=== PATIENT | male | born 1965 | race African-American/Black ===

== ENCOUNTER 2016-04-29 11:27 | Day surgery (SDC) | payer OTHER ==
[2016-04-28 13:52] VITALS: BMI 37.4
[~2016-04-29] VITALS: Ht 172.7 cm; Wt 118.0 kg
[2016-04-29] VITALS (12 sets, daily range): BP systolic 119–147; BP diastolic 61–101; PULSE 50–62; RESP 13–26; Ht 172.7 cm; Wt 118.0 kg
[~2016-04-29 11:27] MED LIST: CEFAZOLIN 1 GM INJ ONE; CEFAZOLIN 1 GM/50 ML (PMX) 50 ML IVPB ONE; FINA5TAB4 PO; GLYCOPYRROLATE 0.4 MG INJ ONE; LIDOCAINE 2% (SDV) 5 ML INJ ONE; NEOSTIGMINE 3 MG/3 ML SYRINGE ONE; PROPOFOL 200 MG INJ ONE; ROCURONIUM 50 MG INJ ONE; SUCCINYLCHOLINE CHLORIDE 100 MG/5 ML SYG IV ONE; TADA5TAB5 PO; TAMS0.4C2 PO; TRIAMCINOLONE ACET SUSP 200 MG INJ INJ SCH; [UNRECOGNIZED DRUG - OTHER]
[2016-04-29] MEDS ORDERED: TRIAMCINOLONE ACET 40 MG/ML INJ ONE ×2 (14:56→15:34)
[2016-04-29] MEDS ORDERED: FENTAnyl 50 MCG/ML VIAL ONE (15:04)
--- NOTE | 2016-04-29 15:28 | HP ---
DATE OF ADMISSION: 04/29/2016 CHIEF COMPLAINT: Slow urinary stream. HISTORY OF PRESENT ILLNESS: This patient has a history of slow urinary stream, frequency and urgenc y. He had undergone a transurethral laser ablation of the prostate on 07/31/2015. He initially had excellent urinary stream, but over time, patient developed a very slow trickling urinary stream wit h sensation of incomplete bladder emptying. Patient underwent a cystoscopy in my office which revea led bladder neck contracture. PAST MEDICAL HISTORY: None. PAST SURGICAL HISTORY: Back lumbar surgery as well as a laser TUR. ALLERGIES: IBUPROFEN. MEDICATIONS: None. SOCIAL HISTORY: No smoke, no alcohol. FAMILY HISTORY: No cancer. PHYSICAL EXAMINATION: CONSTITUTIONAL: The patient appears to be in no acute distress. GASTROINTESTINAL: Abdomen is soft, normal bowel sounds, nondistended, nontender. Hernia exam none noted. Liver and spleen normal. GENITOURINARY: Scrotum no lesions, no edema, no erythema, mass, rash, or cysts. Epididymis symmetr ic, normal size, normal texture, nontender. Urethral meatus normal in size and location. Testes de scended bilaterally. NECK: Normal appearing, symmetric. Normal tracheal position. Thyroid no enlargement. EXTREMITIES: No edema. ASSESSMENT: 1. 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 2. Slow urinary stream. 3. Incomplete bladder emptying. RECOMMENDATIONS: I have spoken with the patient in detail about the natural history and biology of bladder neck contracture formation. We discussed various treatment options. Among these options, I have recommended and patient has elected to undergo transurethral resection of the bladder neck wit h transurethral injection of Kenalog. This procedure has been explained to the patient in detail. Risks and benefits have been discussed. He understands that risks include, but are not limited to i nfection, bleeding, damage to adjacent structures, heart problems, lung problems, possibility of nee d for further surgery, DVT, PE, SC, CVA, nonresolution of symptoms, recurrence of symptoms, need for other treatments, need for other surgeries, recurrence of contracture, recurrence of stricture form ation in other areas of the urethra, nonresolution of symptoms, retrograde ejaculation and erectile dysfunction. All of his questions have been answered, no guarantees given. He would like to procee d. Dictated By: KEO MONTES DE OCA MD SR/NTS Conf#: [id number] DID#: [id number]
[2016-04-29] MEDS ORDERED: MEPERIDINE 25 MG INJ IV PRN (16:00)
[2016-04-29] MEDS ORDERED: DIPHENHYDRAMINE 50 MG INJ IV PRN (16:00)
[2016-04-29] MEDS ORDERED: ONDANSETRON 4 MG INJ IV PRN (16:00)
[2016-04-29] MEDS ORDERED: METOCLOPRAMIDE 10 MG INJ IV PRN (16:00)
[2016-04-29] MEDS ORDERED: OXYCODONE/ACETAMINOPHEN (5/325) TAB PO PRN (16:00)
[2016-04-29] MEDS ORDERED: HYDROmorphONE (0.2 MG/ML) 10ML SYG IV PRN ×3 (16:00)
[2016-04-29] MEDS ORDERED: FENTAnyl 50 MCG/ML VIAL IV PRN ×2 (16:00)
[2016-04-29] MEDS ORDERED: HYDROCODONE/APAP (5/325) TAB PO PRN (16:30)
--- NOTE | 2016-04-29 16:38 | OPPN ---
Date/Time of Note Date/Time of Note DATE: 04/29/16 TIME: 16:36 Operative/Procedure Note Pre-Operative Diagnosis Bladder neck contracture Post-Operative Diagnosis bladder neck contracture Procedure TRUBNC and injection of kenelog transurethral Surgeon: KEO MONTES DE OCA Findings tight BNC: pinpoint opening to bladder: resected to wide open fossa and injected 80 mg kenelog Implants/Grafts: Not applicable Estimated blood loss: 0 - 10 ml's Drains 18 fr catheter Specimens prostate tissue Complications: None Anesthesia type: general KEO MONTES DE OCA Apr 29, 2016 16:38
--- NOTE | 2016-04-29 17:31 | OPR ---
DATE OF OPERATION: 04/29/2016 PREOPERATIVE DIAGNOSIS: Bladder neck contracture. POSTOPERATIVE DIAGNOSIS: Bladder neck contracture. OPERATION PERFORMED: 1. Transurethral resection of bladder neck contracture. 2. Transurethral injection of Kenalog at the bladder neck. INDICATIONS FOR PROCEDURE: This patient has undergone a transurethral laser ablation of his prostat e. He initially had done well; however, over time, his urine stream became extremely slow down to a trickle when he developed incomplete bladder emptying. The patient's cystoscopy revealed bladder n patricia contracture. He is now scheduled to undergo treatment for this problem. FINDINGS: There was only a pinpoint opening at the bladder neck. The prostate appeared to be scarr ed from the bladder neck almost to the verumontanum. At the end of procedure, the prostatic fossa w as wide open and ureteral orifices were orthotopic and intact. Kenalog 80 mg was given to hopefully prevent recurrence of the contracture. PROCEDURE IN DETAIL: The patient was brought to the operating room, underwent general anesthesia. He was placed in lithotomy position. Abdomen, perineum and genitalia were prepped and draped in usu al sterile fashion. A 26 Swiss continuous resecting sheath under direct vision with the visualizin g obturator was placed into the urethra. This was advanced into the prostatic fossa. At the level of the bladder neck, the bladder neck appeared to be scarred with only pinpoint opening beyond this location. The resecting loop with its resecting element were attached. The bipolar resection instr ument was used. The bladder neck contracture was then carefully dissected through the pinpoint opening. As this dis section was carried, the bladder was finally identified. The resection had been performed right thr ough the middle of the contracture. Therefore, there was no undermining of the bladder neck. Bladd er was entered. Bladder was carefully examined. Ureteral orifices were orthotopic. 1+ to 2+ trab eculation was seen in the bladder. No bladder tumors were seen. Bladder muscle appeared to be some what flaccid and floppy. The scope was then brought back into the prostatic fossa. The tissues were then resected in order t o remove all visible scar tissue. Resection was carried from the bladder neck towards the verumonta num as the area of scar appeared to be extending too close to the verumontanum. As this was done, t he bladder neck and the prostatic fossa became more open. Resection was carried initially between a 3 o'clock and 6 o'clock, next between 9 o'clock and 6 o'clock, then an anterior resection was jodi ed. As this resection was carried, left scar tissue was encountered more prostatic fibers were iden tified. At this point, hemostasis was also obtained. All the prostatic chips were then irrigated o ut of the bladder about 3 grams to 4 grams of tissue had been resected. Bladder was reexamined. Ur eteral orifices were again orthotopic and well away from the area of resection and intact. Bladder neck was no longer elevated. The prostatic fossa was at the same level as the bladder floor. At this point, the resectoscope was discontinued. Instead a 22-Swiss cystoscope was placed. The i njection needle was then placed through the working channel of the cystoscope. The injection needle was then used to inject Kenalog into the prostatic fossa and the bladder neck. f Kenalog 80 mg had been diluted into 10 mL of injectable normal sterile saline. The prostatic fossa and bladder neck were injected circumferentially. Care was taken not to inject into the bladder lumen or into the pr ostatic fossa, but actually to inject into the subcutaneous tissues. Overall, 20 mL was injected in this fashion circumferentially and systematically in order to cover the entire bladder neck and pro state. Once this was done, the bladder was reexamined. No bleeding was identified. The cystoscope was then discontinued. An 18 Swiss non-latex Silastic catheter was placed for the patient. Ballo on was inflated to 15 mL. Catheter was hand irrigated until irrigant was clear. Patient was then p laced back in a supine position. He was awakened, extubated, and taken to recovery. POSTOPERATIVE CONDITION: Stable. COMPLICATIONS: None. BLOOD LOSS: Less than 10 mL. BLOOD ADMINISTERED: None. SPECIMENS SENT TO LAB: Prostatic tissue. Dictated By: KEO MONTES DE OCA MD SR/NTS Conf#: [id number] DID#: [id number]
[2016-04-29] MEDS: CIPROFLOXACIN 500 MG TAB PO SCH (18:00)
[2016-04-29] MEDS: DEXTROSE 5%-0.45% NACL 1,000 ML IV SCH (18:00)
[2016-04-29] MEDS: DOCUSATE SODIUM 100 MG CAP PO SCH (20:55)
[2016-04-30] MEDS: CIPROFLOXACIN 500 MG TAB PO SCH (05:25)
[2016-04-30 06:15] LABS: BASOPHILS % 0.4 % (0.0-2.0); HEMATOCRIT 46.4 % (42.0-52.0); HEMOGLOBIN 15.6 g/dl (14.0-18.0); LYMPHOCYTES # 1.2 10^3/ul (0.8-2.9); LYMPHOCYTES % 14.9 % (15.0-51.0); MEAN CORPUSCULAR HEMOGLOBIN 29.3 pg (29.0-33.0); MEAN CORPUSCULAR HGB CONC 33.7 g/dl (32.0-37.0); MEAN CORPUSCULAR VOLUME 86.9 fl (82.0-101.0); MONOCYTE # 0.3 10^3/ul (0.3-0.9); MONOCYTES % 3.3 % (0.0-11.0); NEUTROPHIL # 6.6 10^3/ul (1.6-7.5); NEUTROPHILS % 81.4 % (39.0-77.0); PLATELET COUNT 167 10^3/UL (140-440); RED BLOOD COUNT 5.34 10^6/ul (4.70-6.10); RED CELL DISTRIBUTION WIDTH 15.2 % (11.5-14.5); UNCORRECTED WBC 8.2 10^3/ul (4.8-10.8); WHITE BLOOD COUNT 8.2 10^3/ul (4.8-10.8)
[2016-04-30 06:18] LABS: CONDITION 1; LH ANALYZER COMMENTS 1
[2016-04-30 08:03] VITALS: BP 113/64; RESP 20
[2016-04-30] MEDS: DOCUSATE SODIUM 100 MG CAP PO SCH (09:25)
[2016-04-30] MEDS: DEXTROSE 5%-0.45% NACL 1,000 ML IV SCH (12:28)
== END 2016-04-30 17:35 | disposition home or self-care (01) ==
LOC: SDS 11:27 → MS1 17:20 → SDS 04-30 17:35
PROVIDERS: ATTEND Surgery Surgical Oncology
DX: N32.0 Bladder-neck obstruction (principal); E66.01 Morbid (severe) obesity due to excess calories; Z68.39 Body mass index [BMI] 39.0-39.9, adult
CPT/HCPCS: 52640; 85025; 87086; 88305; J0330; J0690; J2710; J3010; J3301; J7042; Z7512; Z7610